=== PATIENT | female | born 1985 | race Caucasian/White ===

== ENCOUNTER 2016-11-04 12:40 | Inpatient (IN) | payer OTHER ==
[2016-11-04] VITALS (8 sets, daily range): BP systolic 117–135; BP diastolic 70–94; PULSE 108–129; RESP 22–24; TEMP 98.2–100; O2SAT 98–100
--- NOTE | 2016-11-04 17:41 | RADRPT ---
EXAM DATE/TIME: 11/04/2016 17:14 [facility] COMPARISON: No previous studies available for comparison. INDICATIONS : [facility]. Organ donation. MEDICAL HISTORY : Unobtainable. SURGICAL HISTORY : Unobtainable. ENCOUNTER: Initial ACUITY: 1 day PAIN SCORE: Non-responsive. LOCATION: Bilateral chest FINDINGS: AP semiupright portable view of the chest demonstrates what appears to be an endotracheal tube with t he tip overlying the region of the distal clavicles. There is overlying radiopaque tubing which obscu res this region. There is are a gastric tube extending to the region of the stomach. The lungs are si gnificant for right lower lobe airspace consolidation. The left hemithorax and right upper lung appea r clear. Heart size is normal. CONCLUSION: Right lower lobe airspace consolidation. Fiordaliza Sanders MD on November 04, 2016 at 17:37 Board Certified Radiologist. This report was verified electronically.
[2016-11-04 17:43] LABS: BLOOD GAS BASE EXCESS -12.9 mmol/L (-2-2); BLOOD GAS CARBOXYHEMOGLOBIN 0.6 % (0-4); BLOOD GAS HCO3 13 mmol/L (22-26); BLOOD GAS O2 HGB SATURATION 98 % (90-100); BLOOD GAS OXYGEN CONTENT 18.3 Vol % (12.0-20.0); BLOOD GAS PCO2 28 mmHg (38-42); BLOOD GAS PO2 309 mmHg (61-120); BLOOD GAS TOTAL HGB 12.7 G/DL (12.0-16.0); TEMP CORR TO 98.6
[2016-11-04 17:44] LABS: CRITICAL VALUE YES; FIO2 80 %; OXYGEN DEVICE VENTILATOR; VENT SETTINGS PRVC 26/500/5+/1.0
[2016-11-04 17:45] LABS: DRAW SITE ART LINE; STAT YES
[2016-11-04] MEDS ORDERED: VASOPRESSIN 80 U/NS 100 ML Titrate per Translife Protocol IV SCH ×2 (17:45)
[2016-11-04] MEDS ORDERED: INSULIN HUMAN REGULAR 1,000 UNITS/10 ML VIAL IV PUSH SCH (17:45)
[2016-11-04] MEDS ORDERED: DEXTROSE 50% IN WATER 50 ML VIAL(D50) IV SCH (17:45)
[2016-11-04] MEDS ORDERED: ICU - D/C ICU ELECTROLYTE ORDERS PRN (18:00)
[2016-11-04] MEDS ORDERED: methylPREDNISolone SO SUCC INJ 2,000 MG in DEXTROSE 5% IN WATER INJ 250 ML IV ONE ×2 (18:00)
[2016-11-04] MEDS ORDERED: ICU - POTASSIUM CHLORIDE/AQUEOUS SOLN 20 MEQ/100 ML IVPB IV PRN (18:00)
[2016-11-04] MEDS ORDERED: ICU - POTASSIUM PHOSPHATE MONOBASIC 500 MG TAB PO PRN (18:00)
[2016-11-04] MEDS ORDERED: ICU - MAGNESIUM SULFATE 2 GM/NS 100 ML IV PRN ×2 (18:00)
[2016-11-04] MEDS ORDERED: POTASSIUM CHLORIDE 25 MEQ EFFERVESCENT TAB PO PRN (18:00)
[2016-11-04] MEDS ORDERED: ICU - MAGNESIUM SULFATE 4 GM/NS 100 ML IV PRN ×2 (18:00)
[2016-11-04] MEDS ORDERED: ICU - CALL ORDERING PHYSICIAN PRN (18:00)
[2016-11-04] MEDS ORDERED: LEVOTHYROXINE SODIUM 100 MCG VIAL IV PUSH ONE (18:00)
[2016-11-04] MEDS ORDERED: DOPamine INJ 400 MG in SODIUM CHLOR 0.9% 250 ML INJ 250 ML IV SCH (18:00)
[2016-11-04] MEDS ORDERED: ICU - POTASSIUM CHLORIDE/AQUEOUS SOLN 40 MEQ/100 ML IVPB IV PRN (18:00)
[2016-11-04] MEDS ORDERED: ICU - MAGNESIUM OXIDE 400 MG TAB PO PRN (18:00)
[2016-11-04] MEDS ORDERED: ICU - SODIUM PHOSPHATE 30 MMOL/NS 250 ML IV PRN ×2 (18:00)
[2016-11-04] MEDS ORDERED: ICU - POTASSIUM PHOSPHATE 30 MMOL/NS 250 ML IV PRN ×2 (18:00)
[2016-11-04 18:07] LABS: AUTOMATED NEUTROPHIL # 22.7 TH/MM3 (1.8-7.7); BASOPHIL # 0.1 TH/MM3 (0-0.2); BASOPHIL % 0.2 % (0.0-2.0); HEMATOCRIT 39.8 % (35.0-46.0); HEMO FLAGS DIFF FINAL; LYMPH % 4.7 % (9.0-44.0); LYMPHOCYTE # 1.2 TH/MM3 (1.0-4.8); MEAN CELL VOLUME 91.3 FL (80.0-100.0); MEAN CORPUSCULAR HEMOGLOBIN 30.1 PG (27.0-34.0); MEAN CORPUSCULAR HGB CONC 32.9 % (32.0-36.0); NEUT % 89.1 % (16.0-70.0); PLATELET COUNT 134 TH/MM3 (150-450); RED BLOOD COUNT 4.35 MIL/MM3 (4.00-5.30); RED CELL DISTRIBUTION WIDTH 13.9 % (11.6-17.2); WHITE BLOOD COUNT 25.5 TH/MM3 (4.0-11.0)
[2016-11-04] MEDS: CEFEPIME 1000 MG/NS 100 ML IV SCH ×2 (18:14)
[2016-11-04] MEDS ORDERED: ACETAMINOPHEN 650 MG/20.3 ML UDC OG-TUBE PRN (18:15)
[2016-11-04] MEDS ORDERED: SODIUM BICARBONATE 8.4% INJ 50 MEQ/50 ML SYR IV ONE ×2 (18:15→22:45)
[2016-11-04] MEDS ORDERED: DEXTROSE 50% IN WATER 50 ML SYRINGE IV ONE (18:15)
[2016-11-04 18:28] LABS: APTT (PATIENT) 30.8 SEC (24.3-30.1); INTERNATIONAL NORMALIZED RATIO 1.2 RATIO; PROTHROMBIN TIME - PATIENT 13.6 SEC (9.8-11.6)
[2016-11-04] MEDS: 0.0225% SODIUM CHLORIDE, POTASSIUM CHLORIDE 20 MEQ IV SCH ×3 (18:29)
[2016-11-04] MEDS: CLINDAMYCIN 900 MG in NS 100 ML IV SCH (18:32)
[2016-11-04 20:00] LABS: ALKALINE PHOSPHATASE 32 U/L (45-117); ALT (GPT) 27 U/L (10-53); AMYLASE 19 U/L (25-115); ANION GAP 9 MEQ/L (5-15); AST (GOT) 34 U/L (15-37); BICARBONATE 17.7 MEQ/L (21.0-32.0); BLOOD UREA NITROGEN 20 MG/DL (7-18); CHLORIDE 137 MEQ/L (98-107); CREATINE KINASE 131 U/L (26-192); GAMMA GT 13 U/L (5-55); GLOMERULAR FILTRATION RATE 35 ML/MIN (>89); INDIRECT BILIRUBIN 0.6 MG/DL (0.0-0.8); MAGNESIUM 1.3 MG/DL (1.5-2.5); POTASSIUM 3.6 MEQ/L (3.5-5.1); TOTAL BILIRUBIN ADULT 0.8 MG/DL (0.2-1.0)
[2016-11-04 20:21] LABS: SODIUM (NA) 164 MEQ/L (136-145)
[2016-11-04 20:40] LABS: CKMB 3.3 NG/ML (0.5-3.6)
[2016-11-04 20:44] LABS: BLOOD, URINE NEG (NEG); COMMENT (UR) CATH-CULT NOT IND; CULTURE IF INDICATED CATH CULTURE NOT IND; GLUCOSE,URINE NEG (NEG); KETONE, URINE NEG (NEG); MUCUS URINE FEW /lpf (OCC); NITRITE,URINE NEG (NEG); URINE COLOR LIGHT-YELLOW (YELLW/STRAW)
[2016-11-04 20:45] LABS: CALCIUM-PROTEIN CORRECTED 8.9 MG/DL (8.5-10.1)
[2016-11-04] MEDS: RESP: ALBUTEROL 2.5 MG/3 ML NEB (SCH) NEB ×2 (20:45→23:36)
[2016-11-04] MEDS: RESP: ACETYLCYSTEINE 20% 30 ML NEB NEB SCH ×2 (20:46→23:36)
[2016-11-04] MEDS ORDERED: INSULIN HUMAN REGULAR 1,000 UNITS/10 ML VIAL IV PUSH ONE (21:30)
[2016-11-04] MEDS: LEVOTHYROXINE 400 MCG/NS 500 ML IV SCH ×2 (21:52)
[2016-11-04 21:54] LABS: BLOOD GAS BASE EXCESS -10.9 mmol/L (-2-2); BLOOD GAS CARBOXYHEMOGLOBIN 0.8 % (0-4); BLOOD GAS HCO3 15 mmol/L (22-26); BLOOD GAS METHEMOGLOBIN 0.9 % (0-2); BLOOD GAS O2 HGB SATURATION 97 % (90-100); BLOOD GAS OXYGEN CONTENT 17.1 Vol % (12.0-20.0); BLOOD GAS PCO2 38 mmHg (38-42); BLOOD GAS PO2 129 mmHg (61-120); BLOOD GAS TOTAL HGB 12.4 G/DL (12.0-16.0); TEMP CORR TO 98.6
[2016-11-04 21:55] LABS: CRITICAL VALUE YES; OXYGEN DEVICE VENTILATOR
[2016-11-04] MEDS: NOREPINEPHRINE INJ 4 MG in SODIUM CHLOR 0.9% 250 ML INJ 246 ML IV PRN (21:55)
[2016-11-04 21:56] LABS: DRAW SITE ART LINE; FIO2 55 %; STAT NO; VENT SETTINGS PRVC / AC
--- NOTE | 2016-11-04 22:18 | EKG ---
Date Performed: 11/04/2016 Time Performed: 18:07:40 PTAGE: 30 years EKG: Sinus tachycardia Poor R wave progression - probable normal variant Borderline ECG NO PREVIOUS TRACING DOCTOR: Marysol Sweeney Interpretating Date/Time 11/04/2016 22:16:49
[2016-11-04] MEDS ORDERED: SODIUM BICARBONATE 8.4% INJ 100 ML ONE (22:20)
[2016-11-04] MEDS ORDERED: GELATIN 12 MM/7 MM FOAM ONE (22:33)
[2016-11-04] MEDS ORDERED: ALBUMIN HUMAN 25% 25 GM/100 ML BAGP IV ONE (23:00)
[2016-11-05] VITALS (32 sets, daily range): BP systolic 96–143; BP diastolic 53–102; PULSE 89–116; RESP 14–22; TEMP 96.8–100.2; O2SAT 98–100
[2016-11-05] MEDS: CEFEPIME 1000 MG/NS 100 ML IV SCH ×8 (00:24→17:46)
[2016-11-05] MEDS: CLINDAMYCIN 900 MG in NS 100 ML IV SCH ×4 (00:42→17:46)
[2016-11-05 00:57] LABS: BLOOD GAS HCO3 18 mmol/L (22-26); BLOOD GAS O2 HGB SATURATION 98 % (90-100); BLOOD GAS OXYGEN CONTENT 16.3 Vol % (12.0-20.0); BLOOD GAS PCO2 34 mmHg (38-42); BLOOD GAS PO2 477 mmHg (61-120); BLOOD GAS TOTAL HGB 10.9 G/DL (12.0-16.0); CRITICAL VALUE NO; OXYGEN DEVICE VENTILATOR; TEMP CORR TO 98.6
[2016-11-05 00:58] LABS: DRAW SITE ART LINE; FIO2 100 %; STAT YES; VENT SETTINGS PRVC / AC
[2016-11-05] MEDS ORDERED: methylPREDNISolone SOD SUCC 1000 MG/16 ML VIAL IV SCH (02:00)
[2016-11-05] MEDS: NOREPINEPHRINE INJ 4 MG in SODIUM CHLOR 0.9% 250 ML INJ 246 ML IV PRN (02:42)
[2016-11-05] MEDS: methylPREDNISolone SO SUCC INJ 1,000 MG in SODIUM CHLORIDE 0.9% INJ 100 ML IV SCH ×4 (02:42→19:59)
--- NOTE | 2016-11-05 03:18 | RADRPT ---
EXAM DATE/TIME: 11/05/2016 02:14 [facility] COMPARISON: No previous studies available for comparison. INDICATIONS : [employer]. Organ donation MEDICAL HISTORY : Non-responsive SURGICAL HISTORY : Non-responsive ENCOUNTER: Subsequent ACUITY: 2 days PAIN SCORE: Non-responsive. LOCATION: Bilateral chest FINDINGS: A single view of the chest demonstrates the endotracheal tube, nasogastric tube are both in good posi tion. Dense infiltrate right lower lobe is unchanged. There is an intraducer sheath overlying the le ft subclavian medially however a catheters extending cephalad. Left chest tube is seen with its tip near the aortic knob The cardiomediastinal contours are unremarkable. Osseous structures are intact. CONCLUSION: Stable dense infiltrate throughout the right lower lobe. Tubes and catheters as above Josesito Moralse MD on November 05, 2016 at 3:15 Board Certified Radiologist. This report was verified electronically.
[2016-11-05 03:21] LABS: ALKALINE PHOSPHATASE 34 U/L (45-117); ALT (GPT) 31 U/L (10-53); ANION GAP 9 MEQ/L (5-15); AST (GOT) 40 U/L (15-37); BICARBONATE 20.3 MEQ/L (21.0-32.0); BLOOD UREA NITROGEN 17 MG/DL (7-18); CHLORIDE 133 MEQ/L (98-107); GLOMERULAR FILTRATION RATE 43 ML/MIN (>89); MAGNESIUM 2.4 MG/DL (1.5-2.5); POTASSIUM 3.7 MEQ/L (3.5-5.1); TOTAL BILIRUBIN ADULT 1.3 MG/DL (0.2-1.0)
[2016-11-05 03:30] LABS: BLOOD GAS BASE EXCESS -7.7 mmol/L (-2-2); BLOOD GAS CARBOXYHEMOGLOBIN 0.4 % (0-4); BLOOD GAS HCO3 21 mmol/L (22-26); BLOOD GAS METHEMOGLOBIN 0.9 % (0-2); BLOOD GAS O2 HGB SATURATION 98 % (90-100); BLOOD GAS OXYGEN CONTENT 15.8 Vol % (12.0-20.0); BLOOD GAS PCO2 75 mmHg (38-42); BLOOD GAS PO2 292 mmHg (61-120); BLOOD GAS TOTAL HGB 10.9 G/DL (12.0-16.0); TEMP CORR TO 98.6
[2016-11-05] MEDS ORDERED: SODIUM BICARBONATE 8.4% INJ 50 ML ONE ×2 (03:30→06:11)
[2016-11-05 03:31] LABS: CRITICAL VALUE YES; DRAW SITE ART LINE; FIO2 100 %; LITER FLOW 10 L/M; OXYGEN DEVICE OXYGEN TUBING; STAT YES
[2016-11-05 03:33] LABS: SODIUM (NA) 162 MEQ/L (136-145)
[2016-11-05] MEDS ORDERED: ALBUMIN HUMAN 25% 25 GM/100 ML BAGP IV ONE ×3 (04:00→17:00)
[2016-11-05] MEDS ORDERED: SODIUM BICARBONATE 8.4% INJ 50 MEQ/50 ML SYR IV ONE ×2 (04:00→06:30)
[2016-11-05] MEDS: RESP: ACETYLCYSTEINE 20% 30 ML NEB NEB SCH ×6 (04:12→23:43)
[2016-11-05] MEDS: RESP: ALBUTEROL 2.5 MG/3 ML NEB (SCH) NEB ×6 (04:13→23:43)
[2016-11-05] MEDS ORDERED: PHENYLEPHRINE HCL 160 MG/D5W 484 ML ADMIX IV PRN ×2 (04:45)
[2016-11-05] MEDS: 0.0225% SODIUM CHLORIDE, POTASSIUM CHLORIDE 20 MEQ IV SCH ×6 (05:58→15:25)
[2016-11-05] MEDS ORDERED: DEXTROSE 5% IN WATE 500 ML INJ 500 ML IV ONE (06:30)
--- NOTE | 2016-11-05 07:14 | RADRPT ---
EXAM DATE/TIME: 11/05/2016 06:51 [facility] COMPARISON: CHEST SINGLE AP, November 05, 2016, 2:14. INDICATIONS : Free air MEDICAL HISTORY : Non-responsive SURGICAL HISTORY : Non-responsive ENCOUNTER: Subsequent ACUITY: 2 days PAIN SCORE: Non-responsive. LOCATION: chest FINDINGS: Stable endotracheal tube with the tip overlying the level of the clavicles. Stable left-sided chest t ube. No visualized pneumothorax. Stable right lower lobe airspace consolidation. Heart size is normal . NG tube extends beyond the imaged portion of the film. CONCLUSION: Stable lines and tubes. No visualized pneumothorax. Stable right lower lobe airspace consolidation. Fiordaliza Sanders MD on November 05, 2016 at 7:10 Board Certified Radiologist. This report was verified electronically.
[2016-11-05 07:24] LABS: BLOOD GAS BASE EXCESS -5.3 mmol/L (-2-2); BLOOD GAS HCO3 20 mmol/L (22-26); BLOOD GAS METHEMOGLOBIN 0.9 % (0-2); BLOOD GAS O2 HGB SATURATION 98 % (90-100); BLOOD GAS OXYGEN CONTENT 14.4 Vol % (12.0-20.0); BLOOD GAS PCO2 38 mmHg (38-42); BLOOD GAS PO2 414 mmHg (61-120); BLOOD GAS TOTAL HGB 9.7 G/DL (12.0-16.0); CRITICAL VALUE NO; OXYGEN DEVICE VENTILATOR; TEMP CORR TO 98.6
[2016-11-05 07:25] LABS: DRAW SITE ART LINE; FIO2 100 %; STAT YES
[2016-11-05] MEDS ORDERED: FUROSEMIDE 20 MG/2 ML VIAL IV PUSH ONE ×2 (07:30→14:00)
[2016-11-05 07:32] LABS: VENT SETTINGS PRVC/AC
[2016-11-05] MEDS: LEVOTHYROXINE 400 MCG/NS 500 ML IV SCH ×2 (08:15)
[2016-11-05 08:51] LABS: BLOOD GAS BASE EXCESS -5.4 mmol/L (-2-2); BLOOD GAS CARBOXYHEMOGLOBIN 0.9 % (0-4); BLOOD GAS HCO3 19 mmol/L (22-26); BLOOD GAS METHEMOGLOBIN 0.9 % (0-2); BLOOD GAS O2 HGB SATURATION 98 % (90-100); BLOOD GAS OXYGEN CONTENT 12.8 Vol % (12.0-20.0); BLOOD GAS PCO2 34 mmHg (38-42); BLOOD GAS PO2 339 mmHg (61-120); BLOOD GAS TOTAL HGB 8.6 G/DL (12.0-16.0); CRITICAL VALUE NO; OXYGEN DEVICE VENTILATOR; TEMP CORR TO 98.6
[2016-11-05 08:52] LABS: DRAW SITE ART LINE; FIO2 100 %; STAT NO; VENT SETTINGS PRVC/AC
[2016-11-05] MEDS ORDERED: DOPamine INJ 400 MG in SODIUM CHLOR 0.9% 250 ML INJ 250 ML IV SCH (10:00)
[2016-11-05 10:31] LABS: HEMOGLOBIN A1b 0.7 %; HEMOGLOBIN Ao 85.9 %; HEMOGLOBIN F 1.2 %; HEMOGLOBIN LA1C 2.1 %; HEMOGLOBIN P3 3.5 %
[2016-11-05 10:36] LABS: AUTOMATED NEUTROPHIL # 16.1 TH/MM3 (1.8-7.7); BASOPHIL % 0.1 % (0.0-2.0); EOSINOPHIL % 0.1 % (0.0-4.0); HEMATOCRIT 27.8 % (35.0-46.0); LYMPH % 6.8 % (9.0-44.0); LYMPHOCYTE # 1.2 TH/MM3 (1.0-4.8); MEAN CELL VOLUME 90.5 FL (80.0-100.0); MEAN CORPUSCULAR HEMOGLOBIN 29.9 PG (27.0-34.0); MONO % 2.2 % (0.0-8.0); NEUT % 90.8 % (16.0-70.0); PLATELET COUNT 80 TH/MM3 (150-450); RED BLOOD COUNT 3.07 MIL/MM3 (4.00-5.30); RED CELL DISTRIBUTION WIDTH 14.2 % (11.6-17.2); WHITE BLOOD COUNT 17.7 TH/MM3 (4.0-11.0)
[2016-11-05 10:43] LABS: HEMO FLAGS AUTO DIFF
[2016-11-05 10:46] LABS: ANION GAP 8 MEQ/L (5-15)
[2016-11-05 10:51] LABS: ALKALINE PHOSPHATASE 33 U/L (45-117); ALT (GPT) 34 U/L (10-53); AST (GOT) 106 U/L (15-37); BLOOD UREA NITROGEN 18 MG/DL (7-18); CHLORIDE 125 MEQ/L (98-107); GLOMERULAR FILTRATION RATE 43 ML/MIN (>89); POTASSIUM 3.9 MEQ/L (3.5-5.1); TOTAL BILIRUBIN ADULT 1.5 MG/DL (0.2-1.0)
[2016-11-05 11:02] LABS: SODIUM (NA) 158 MEQ/L (136-145)
[2016-11-05 11:15] LABS: BANDS 39 % (0-6); OVALOCYTES 1+ (NORMAL); PLATELET ESTIMATE SMEAR LOW (NORMAL); PLATELET MORPHOLOGY NORMAL (NORMAL); POLYS (SEG NEUTROPHILS) 57 % (16-70); SCAN/DIFF FINAL DIFF MANUAL; WBC DIFF SAMPLE 100
[2016-11-05 11:20] LABS: BLOOD GAS BASE EXCESS -3.5 mmol/L (-2-2); BLOOD GAS CARBOXYHEMOGLOBIN 0.8 % (0-4); BLOOD GAS HCO3 21 mmol/L (22-26); BLOOD GAS O2 HGB SATURATION 98 % (90-100); BLOOD GAS OXYGEN CONTENT 12.5 Vol % (12.0-20.0); BLOOD GAS PCO2 38 mmHg (38-42); BLOOD GAS PO2 364 mmHg (61-120); BLOOD GAS TOTAL HGB 8.4 G/DL (12.0-16.0); CRITICAL VALUE NO; OXYGEN DEVICE VENTILATOR; TEMP CORR TO 98.6
[2016-11-05 11:21] LABS: DRAW SITE ART LINE; FIO2 100 %; STAT NO; VENT SETTINGS PRVC/AC
--- NOTE | 2016-11-05 11:44 | EKG ---
Date Performed: 11/05/2016 Time Performed: 10:15:46 PTAGE: 30 years EKG: CONSIDER ACUTE ST ELEVATION LA Sinus tachycardia. Rightward axis EXTENSIVE INFA RCT WITH ACUTE CHANGES Anterolateral ST elevation, CONSIDER ACUTE INFARCT Abnormal ECG PREVIOUS TRACING : 11/04/2016 18.07 Compared to the previous tracing ST elevation now present DOCTOR: Marysol Sweeney Interpretating Date/Time 11/05/2016 11:42:18
[2016-11-05 12:07] LABS: MAGNESIUM 2.1 MG/DL (1.5-2.5)
--- NOTE | 2016-11-05 12:30 | ECHRPT ---
Indication: organ donor CONCLUSIONS The left ventricular systolic function is severely reduced with an estimated ejection fraction in th e range of 25-30%. Global apical hypokinesis Wall thickness is normal. Mild mitral valve regurgitation. There is mild tricuspid valve regurgitation. The estimated pulmonary arterial pressure is _34_ mmHg. The pulmonary valve is not well visualized. BP: / HR: Rhythm: MEASUREMENTS (Male / Female) Normal Values Technical Quality:Good 2D ECHO LV Diastolic Diameter PLAX 4.5 cm 4.2 - 5.9 / 3.9 - 5.3 cm LV Systolic Diameter PLAX 4.0 cm IVS Diastolic Thickness 0.9 cm 0.6 - 1.0 / 0.6 - 0.9 cm LVPW Diastolic Thickness 0.8 cm 0.6 - 1.0 / 0.6 - 0.9 cm LV Relative Wall Thickness 0.4 RV Internal Dim ED PLAX 1.7 cm M-MODE Aortic Root Diameter MM 3.4 cm LA Systolic Diameter MM 2.3 cm LA Ao Ratio MM 0.7 AV Cusp Separation MM 2.1 cm DOPPLER TR Peak Velocity 244.0 cm/s TR Peak Gradient 23.8 mmHg FINDINGS LEFT VENTRICLE The left ventricular systolic function is severely reduced with an estimated ejection fraction in th e range of 25-30%. Normal left ventricular size. Wall thickness is normal. RIGHT VENTRICLE Normal right ventricular size and systolic function. LEFT ATRIUM The left atrial size is normal. RIGHT ATRIUM The right atrial size is normal. ATRIAL SEPTUM Normal atrial septal thickness without atrial level shunting by limited color doppler interrogation. AORTA The aortic root and proximal ascending aorta are normal in size on limited imaging. MITRAL VALVE Structurally normal mitral valve. Mild mitral valve regurgitation. AORTIC VALVE Trileaflet aortic valve. No aortic valve stenosis or regurgitation. TRICUSPID VALVE Structurally normal tricuspid valve. There is mild tricuspid valve regurgitation. The estimated pulmonary arterial pressure is _34_ mmHg. PULMONARY VALVE The pulmonary valve is not well visualized. VESSELS The inferior vena cava is normal in size. PERICARDIUM No pericardial effusion. Brian Sanford MD (Electronically Signed) Final Date:05 November 2016 12:29
[2016-11-05] MEDS ORDERED: MILRINONE LACTATE 20 MG/20 ML VIAL IV STA (13:21)
[2016-11-05] MEDS ORDERED: SODIUM CHLORIDE 0.9% IV ONE (13:30)
[2016-11-05] MEDS ORDERED: MILRINONE IV ONE (13:30)
[2016-11-05] MEDS: MILRINONE INJ 20 MG in SODIUM CHLORIDE 0.9% INJ 80 ML IV SCH (13:59)
--- NOTE | 2016-11-05 15:09 | RADRPT ---
EXAM DATE/TIME: 11/05/2016 14:46 [facility] COMPARISON: No previous studies available for comparison. INDICATIONS : Shortness of breath. MEDICAL HISTORY : None. SURGICAL HISTORY : None. ENCOUNTER: Initial ACUITY: 1 day PAIN SCORE: Non-responsive. LOCATION: Bilateral chest FINDINGS: Right base consolidation modestly worse in the interim. There is consolidation medially at the left l erica base that is modestly improved. No large effusion seen. No pneumothorax. Heart size stable, normal. There is a left chest tube again seen. Patient remains intubated. Endotracheal tube tip is approximat louie 4.5 cm above the helene. There is a nasogastric tube with tip in the stomach. CONCLUSION: Bibasilar consolidation, worse on the right and slightly improved on the left. Unchanged lines and tubes including a left chest tube. No pneumothorax. Agapito Miranda MD on November 05, 2016 at 15:06 Board Certified Radiologist. This report was verified electronically.
[2016-11-05 15:49] LABS: BLOOD GAS BASE EXCESS -3.9 mmol/L (-2-2); BLOOD GAS HCO3 21 mmol/L (22-26); BLOOD GAS METHEMOGLOBIN 0.8 % (0-2); BLOOD GAS O2 HGB SATURATION 98 % (90-100); BLOOD GAS OXYGEN CONTENT 14.2 Vol % (12.0-20.0); BLOOD GAS PCO2 39 mmHg (38-42); BLOOD GAS PO2 243 mmHg (61-120); BLOOD GAS TOTAL HGB 9.9 G/DL (12.0-16.0); CRITICAL VALUE NO; OXYGEN DEVICE VENTILATOR; TEMP CORR TO 98.6; VENT SETTINGS SEE COMMENTS
[2016-11-05 15:50] LABS: DRAW SITE ART LINE; FIO2 100 %; STAT NO
[2016-11-05] MEDS ORDERED: DOBUTamine PREMIX DRIP 250 ML ONE (16:08)
[2016-11-05] MEDS ORDERED: DOBUTamine PREMIX DRIP 250 ML IV SCH (16:45)
[2016-11-05 17:42] LABS: BLOOD GAS CARBOXYHEMOGLOBIN 0.9 % (0-4); BLOOD GAS HCO3 20 mmol/L (22-26); BLOOD GAS METHEMOGLOBIN 0.9 % (0-2); BLOOD GAS O2 HGB SATURATION 98 % (90-100); BLOOD GAS OXYGEN CONTENT 13.7 Vol % (12.0-20.0); BLOOD GAS PCO2 33 mmHg (38-42); BLOOD GAS PO2 403 mmHg (61-120); BLOOD GAS TOTAL HGB 9.2 G/DL (12.0-16.0); CRITICAL VALUE NO; OXYGEN DEVICE VENTILATOR; TEMP CORR TO 98.6
[2016-11-05 17:43] LABS: DRAW SITE ART LINE; FIO2 100 %; STAT NO; VENT SETTINGS SEE COMMENTS
[2016-11-05] MEDS ORDERED: FUROSEMIDE 20 MG/2 ML VIAL IV ONE (17:45)
[2016-11-05 18:35] LABS: HEMATOCRIT 26.3 % (35.0-46.0); MEAN CELL VOLUME 89.7 FL (80.0-100.0); MEAN CORPUSCULAR HEMOGLOBIN 30.6 PG (27.0-34.0); MEAN CORPUSCULAR HGB CONC 34.1 % (32.0-36.0); PLATELET COUNT 82 TH/MM3 (150-450); RED BLOOD COUNT 2.93 MIL/MM3 (4.00-5.30); RED CELL DISTRIBUTION WIDTH 14.1 % (11.6-17.2); WHITE BLOOD COUNT 21.9 TH/MM3 (4.0-11.0)
[2016-11-05 18:39] LABS: REVIEW FLAG FINAL
[2016-11-05 19:02] LABS: ALKALINE PHOSPHATASE 36 U/L (45-117); ALT (GPT) 38 U/L (10-53); ANION GAP 11 MEQ/L (5-15); AST (GOT) 154 U/L (15-37); BICARBONATE 23.8 MEQ/L (21.0-32.0); BLOOD UREA NITROGEN 20 MG/DL (7-18); CALCIUM-PROTEIN CORRECTED 7.9 MG/DL (8.5-10.1); CHLORIDE 121 MEQ/L (98-107); GLOMERULAR FILTRATION RATE 37 ML/MIN (>89); POTASSIUM 3.8 MEQ/L (3.5-5.1); SODIUM (NA) 156 MEQ/L (136-145); TOTAL BILIRUBIN ADULT 1.9 MG/DL (0.2-1.0)
[2016-11-05 20:04] LABS: BACTERIA, URINE RARE /hpf; BLOOD, URINE NEG (NEG); GLUCOSE,URINE NEG (NEG); KETONE, URINE NEG (NEG); MUCUS URINE FEW /lpf (OCC); NITRITE,URINE NEG (NEG); URINE COLOR LIGHT-YELLOW (YELLW/STRAW)
[2016-11-05 20:05] LABS: COMMENT (UR) CATH-CULTURE IND; CULTURE IF INDICATED CATH CULTURE IND
[2016-11-05] MEDS ORDERED: CALCIUM GLUCONATE INJ 1 GM in SODIUM CHLORIDE 0.9% INJ 100 ML IV ONE (20:30)
--- NOTE | 2016-11-05 21:46 | RADRPT ---
EXAM DATE/TIME: 11/05/2016 20:38 [facility] COMPARISON: No previous studies available for comparison. INDICATIONS : Evaluate for lung donation. Evaluate for infiltrate. RADIATION DOSE: 9.59 CTDIvol (mGy) MEDICAL HISTORY : Non-responsive. SURGICAL HISTORY : Non-responsive. ENCOUNTER: Initial ACUITY: 1 day PAIN SCALE: Non-responsive LOCATION: Bilateral chest TECHNIQUE: Volumetric scanning of the chest was performed. Using automated exposure control and adjustment of t he mA and/or kV according to patient size, radiation dose was kept as low as reasonably achievable to obtain optimal diagnostic quality images. DICOM format image data is available electronically for r eview and comparison. Follow-up recommendations for detected pulmonary nodules are based at a minimum on nodule size and pa tient risk factors according to Fleischner Society Guidelines. FINDINGS: Patchy alveolar consolidations are noted involving the lower lobes bilaterally raising the possibility of pneumonia. Clinical correlation is recommended. There is a tiny residual pneumothor ax on the left anteriorly. A left-sided chest tube is noted. Tiny right pleural effusion is noted. No pulmonary nodule or mass is identified. Scoliosis os the thoracic spine is noted. An endotracheal tube has its tip approximate ly 3 cm above the helene. A nasogastric tube has its tip below the diaphragm. No mediastinal, hilar or axillary lymphadenopathy is noted. CONCLUSION: 1. Patchy alveolar consolidations within the lower lobes bilaterally consistent with possible pneumon ia. Clinical correlation is recommended. 2. Tiny right pleural effusion. 3. Tiny residual left-sided pneumothorax with chest tube in place. 4. Mild scoliosis of the thoracic spine. Perez Zuluaga MD on November 05, 2016 at 20:57 Board Certified Radiologist. This report was verified electronically.
[2016-11-05 23:30] LABS: APTT (PATIENT) 41.8 SEC (24.3-30.1); INTERNATIONAL NORMALIZED RATIO 1.6 RATIO; PROTHROMBIN TIME - PATIENT 17.7 SEC (9.8-11.6)
[2016-11-05 23:49] LABS: ALKALINE PHOSPHATASE 43 U/L (45-117); ALT (GPT) 37 U/L (10-53); AMYLASE 14 U/L (25-115); ANION GAP 14 MEQ/L (5-15); AST (GOT) 134 U/L (15-37); BICARBONATE 21.8 MEQ/L (21.0-32.0); BLOOD UREA NITROGEN 20 MG/DL (7-18); CHLORIDE 120 MEQ/L (98-107); GLOMERULAR FILTRATION RATE 36 ML/MIN (>89); MAGNESIUM 1.9 MG/DL (1.5-2.5); POTASSIUM 3.5 MEQ/L (3.5-5.1); TOTAL BILIRUBIN ADULT 2.2 MG/DL (0.2-1.0)
[2016-11-05 23:55] LABS: SODIUM (NA) 156 MEQ/L (136-145)
[2016-11-06] VITALS: BP 119/74; PULSE 101; RESP 14; TEMP 97.7; O2SAT 99
[2016-11-06] MEDS: CEFEPIME 1000 MG/NS 100 ML IV SCH ×2 (00:04)
[2016-11-06] MEDS: CLINDAMYCIN 900 MG in NS 100 ML IV SCH (00:32)
[2016-11-06] MEDS: 0.0225% SODIUM CHLORIDE, POTASSIUM CHLORIDE 20 MEQ IV SCH ×3 (00:37)
[2016-11-06] MEDS: MILRINONE INJ 20 MG in SODIUM CHLORIDE 0.9% INJ 80 ML IV SCH (00:38)
[2016-11-06 01:00] VITALS: BP 120/74; PULSE 104; RESP 14; TEMP 97.2; O2SAT 99
[2016-11-06] MEDS ORDERED: PIPERACIL-TAZO 3.375 GM PREMIX 50 ML IV ONE (01:00)
[2016-11-06] MEDS ORDERED: VANCOMYCIN 1,000 MG/NS 250 ML IV ONE ×2 (01:00)
[2016-11-06] MEDS ORDERED: DEXTROSE 5% IN WATE 500 ML INJ 500 ML IV ONE (01:00)
[2016-11-06 02:00] VITALS: BP 108/66; PULSE 102; RESP 14; TEMP 97.2; O2SAT 99
[2016-11-06 02:14] LABS: AUTOMATED NEUTROPHIL # 21.2 TH/MM3 (1.8-7.7); BASOPHIL % 0.1 % (0.0-2.0); LYMPH % 2.5 % (9.0-44.0); LYMPHOCYTE # 0.6 TH/MM3 (1.0-4.8); MEAN CELL VOLUME 89.1 FL (80.0-100.0); MEAN CORPUSCULAR HEMOGLOBIN 30.8 PG (27.0-34.0); MEAN CORPUSCULAR HGB CONC 34.6 % (32.0-36.0); MONO % 2.6 % (0.0-8.0); NEUT % 94.8 % (16.0-70.0); PLATELET COUNT 74 TH/MM3 (150-450); RED BLOOD COUNT 2.81 MIL/MM3 (4.00-5.30); RED CELL DISTRIBUTION WIDTH 14.2 % (11.6-17.2); WHITE BLOOD COUNT 22.3 TH/MM3 (4.0-11.0)
[2016-11-06 02:19] LABS: HEMO FLAGS DIFF FINAL
[2016-11-06 02:24] LABS: BICARBONATE 23.5 MEQ/L (21.0-32.0); POTASSIUM 3.8 MEQ/L (3.5-5.1)
[2016-11-06] MEDS: methylPREDNISolone SO SUCC INJ 1,000 MG in SODIUM CHLORIDE 0.9% INJ 100 ML IV SCH (02:43)
[2016-11-06 03:00] VITALS: BP 123/79; PULSE 99; RESP 14; TEMP 97; O2SAT 100
[2016-11-06 03:00] LABS: BLOOD GAS BASE EXCESS -0.9 mmol/L (-2-2); BLOOD GAS CARBOXYHEMOGLOBIN 0.9 % (0-4); BLOOD GAS HCO3 23 mmol/L (22-26); BLOOD GAS METHEMOGLOBIN 0.9 % (0-2); BLOOD GAS O2 HGB SATURATION 98 % (90-100); BLOOD GAS OXYGEN CONTENT 13.3 Vol % (12.0-20.0); BLOOD GAS PCO2 33 mmHg (38-42); BLOOD GAS PO2 487 mmHg (61-120); BLOOD GAS TOTAL HGB 8.7 G/DL (12.0-16.0); CRITICAL VALUE NO; TEMP CORR TO 98.6
[2016-11-06 03:01] LABS: DRAW SITE ALINE; FIO2 100 %; OXYGEN DEVICE VENTILATOR; STAT NO
--- NOTE | 2016-11-06 03:31 | RADRPT ---
EXAM DATE/TIME: 11/06/2016 02:24 [facility] COMPARISON: CHEST SINGLE AP, November 05, 2016, 2:14. CHEST SINGLE AP, November 05, 2016, 6:51. CHEST SINGLE AP, 2016, 14:46. INDICATIONS : [facility]. MEDICAL HISTORY : None. SURGICAL HISTORY : None. ENCOUNTER: Subsequent ACUITY: 3 days PAIN SCORE: 0/10 LOCATION: Bilateral chest FINDINGS: Portable AP view of the chest demonstrates a normal-sized cardiac silhouette. ETT and nasogastric tub e remain present. A left chest tube is present and no pneumothorax is visualized. A left subclavian c entral line distal tip extends into the left neck. There is mild bibasilar airspace consolidation, ri ght greater than left. CONCLUSION: 1. Stable mild bibasilar airspace consolidation. 2. Left chest tube remains present and no pneumothorax is identified. 3. The left subclavian central line is in stable position but distal tip extends into the left neck, likely into the internal jugular vein. Agapito Davison MD on November 06, 2016 at 3:27 Board Certified Radiologist. This report was verified electronically.
[2016-11-06 04:00] VITALS: BP 125/81; PULSE 96; RESP 14; TEMP 97.2; O2SAT 99
[2016-11-06] MEDS ORDERED: ALBUMIN HUMAN 5% 12.5 GM/250 ML BOTTLE IV ONE (05:18)
[2016-11-06] MEDS ORDERED: VASOPRESSIN 20 UNITS/ML VIAL (IVTITR) IV ONE (08:39)
[2016-11-06] MEDS ORDERED: LACTATED RINGER'S 1000 ML INJ 1,000 ML IV ONE (08:39)
[2016-11-06] MEDS ORDERED: PHENYLEPH/NS 1000 MCG/10 ML SYR IV ONE (08:39)
[2016-11-06] MEDS ORDERED: NORMOSOL R INJ 1,000 ML IV ONE (08:39)
== END 2016-11-06 10:43 | disposition expired | DRG 951 ==
LOC: HIMN 12:40 → N03B 16:46
DX: Z52.89 Donor of other specified organs or tissues (principal); Z52.4 Kidney donor; Z52.6 Liver donor
CPT/HCPCS: 36430; 71010; 71250; 80048; 80053; 80076; 81001; 82150; 82248; 82330; 82550; 82552; 82805; 82948; 82977; 83036; 83690; 83735; 84100; 84155; 84484; 85007; 85025; 85027; 85610; 85730; 86920; 87040; 87070; 87086; 87205; 93005; 93306; 94003; 94640; 94664; 94667; 94668; J0610; J0692; J1250; J1265; J1720; J1815; J1940; J2250; J2260; J2370; J2543; J2930; J3370; J3475; J3480; J7040; J7050; J7060; J7120; J7608; J7613; P9016; P9045; P9047